=== PATIENT | female | born 1935 | race Caucasian/White ===

== ENCOUNTER 2022-03-05 21:10 | Observation (INO) | payer MEDICARE, OTHER ==
[~2022-03-05] VITALS: Ht 165.1 cm; Wt 65.6 kg
[2022-03-05 22:02] LABS: BASO % 0.4 % (0.0-2.0); EOS % 0.4 % (0.0-4.0); GRAN # 6.6 K/mm3 (1.4-6.5); GRAN % 66.8 % (42.2-75.2); HEMOGLOBIN 11.5 g/dl (12.5-16.0); LYMPH # 2.3 K/mm3 (1.2-3.4); MEAN CELL VOLUME 89 fl (80.0-100.0); MEAN CORPUSCULAR HEMOGLOBIN 29 pg (27-31); MEAN CORPUSCULAR HGB CONC 33 g/dl (33.0-37.0); MEAN PLATELET VOLUME 8.8 fl (7.4-10.4); MONO # 0.8 K/mm3 (0.1-0.6); MONO % 8.5 % (1.7-9.3); PLATELET COUNT 457 K/mm3 (130-400); RED BLOOD COUNT 3.94 M/mm3 (4.10-5.30); REDCELL DISTRIBUTION WIDTH-CV 15.2 % (11.5-14.5)
[2022-03-05 22:04] LABS: HEMATOCRIT 35.2 % (37.0-47.0)
[2022-03-05 22:18] LABS: ALANINE AMINOTRANSFERASE 11 U/L (0-55); ALKALINE PHOSPHATASE 101 U/L (40-150); ANION GAP 13 mmol/L (7-16); AST,SGOT 20 U/L (5-34); BILIRUBIN,TOTAL 0.4 mg/dL (0.2-1.2); BLOOD UREA NITROGEN 28 mg/dL (10-20); C-REACTIVE PROTEIN 0.15 mg/dL (0.00-0.50); CALCIUM 10.5 mg/dL (8.4-10.2); CARBON DIOXIDE 28 mmol/L (23-31); CHLORIDE 100 mmol/L (98-107); CREATININE, serum 2.08 mg/dL (0.57-1.11); GLUCOSE 108 mg/dL (70-99); POTASSIUM 4.5 mmol/L (3.5-4.5); SODIUM 141 mmol/L (136-145); TOTAL PROTEIN 8.1 gm/dL (6.2-8.1)
[2022-03-05 22:25] LABS: TROPONIN-I < 0.010 ng/mL (0.00-0.033)
[2022-03-05] MEDS ORDERED: CORDARONE200 MG/TAB PO (23:03)
[2022-03-05] MEDS ORDERED: LIPITOR 10MG10 MG PO (23:03)
[2022-03-05] MEDS ORDERED: VITAMIN D31000 I1 PO (23:04)
[2022-03-05] MEDS ORDERED: LASIX 20MG TABL20 MG PO (23:05)
[2022-03-05] MEDS ORDERED: TAZTIA120 PO (23:05)
[2022-03-05] MEDS ORDERED: MAG-OX 400400 MG/TAB PO (23:05)
[2022-03-05] MEDS ORDERED: REMERON30 MG PO (23:06)
[2022-03-05] MEDS ORDERED: REGLAN 10MG10 MG/TAB PO (23:06)
[2022-03-05] MEDS ORDERED: SINGULAIR 110 MG/TAB PO (23:07)
[2022-03-05] MEDS ORDERED: PROTONIX 40MG T40 MG PO (23:08)
[2022-03-05] MEDS ORDERED: RT SPIRIVA18 MCG IH (23:09)
[2022-03-05] MEDS ORDERED: CYANOCOBAL1000 MCG/1 (23:09)
[2022-03-05] MEDS ORDERED: ATIVAN 0.50.5 MG/TAB PO (23:09)
[2022-03-05] MEDS ORDERED: XARELTO20 MG PO (23:10)
[2022-03-06] VITALS (7 sets, daily range): BP systolic 101–172; BP diastolic 41–82; PULSE 64–75; TEMP 97.4–97.9
[2022-03-06] MEDS ORDERED: DULCOLAX STOOL100 MG PO (00:29)
[2022-03-06] MEDS ORDERED: PROBIOTIC DIGE1 EACH PO (00:35)
[2022-03-06] MEDS ORDERED: MUCINEX 60600 MG/TA1 PO (00:36)
[2022-03-06] MEDS ORDERED: MACROBID 1100 MG/CAP PO (00:39)
--- NOTE | 2022-03-06 00:44 | NUR ---
Patient arrived to medical unit from ER. Denies having pain and discomfort. Peripheral IV to right forearm. Denies SOB and dyspnea. LS CTA. HRR. Telemetry in place: sinus. Capillary refill less than 3 seconds. Patient is pale and cold. Given warm blanket. BSAx4. Abdomen soft and non-tender. No edema. Patient voices no questions, needs, or concerns at this time. In bed with call light within reach. High fall risk precautions in place. Aware that she needs to get a urine sample. Reminded patient to call when getting up to go to bathroom, and urine collection supplies put in bathroom. Patient voices no questions, needs, or concerns at this time. In bed with call light within reach. Bed alarm on.
[2022-03-06 02:52] LABS: COLLECTION METHOD CLEAN CATCH
[2022-03-06 03:01] LABS: MUCOUS Present (NOT PRESENT); PH 7 (5-8); SQUAMOUS EPITHELIAL 0-2 /hpf (0-10); URINE APPEARANCE Clear (CLEAR/HAZY); URINE BACTERIA Moderate /hpf (NONE SEEN); URINE BILIRUBIN Negative (NEGATIVE); URINE BLOOD Negative (NEGATIVE); URINE COLOR Yellow (YELLOW); URINE GLUCOSE Negative (NEGATIVE); URINE KETONE Negative (NEGATIVE); URINE LEUKOCYTE ESTERASE Negative (NEGATIVE); URINE NITRATE Positive (NEGATIVE); URINE PROTEIN(semi-quant) Negative (NEGATIVE); URINE RBC None Seen /hpf (0-2); URINE UROBILINOGEN Negative (NEGATIVE)
--- NOTE | 2022-03-06 06:14 | NUR ---
Patient has denied pain and discomfort. Only reports feeling weak, denies SOB and dyspnea. High fall risk precautions in place. One assist with going to the bathroom, able to ambulate to bathroom. Continues on IV fluids per orders. Voices no questions, needs, or concerns at this time. In bed with call light within reach. Bed alarm on.
[2022-03-06 06:47] LABS: BASO % 0.2 % (0.0-2.0); EOS # 0.1 K/mm3 (0.0-0.7); EOS % 0.9 % (0.0-4.0); GRAN % 62.2 % (42.2-75.2); LYMPH # 2.1 K/mm3 (1.2-3.4); LYMPH % 26.1 % (20.0-51.0); MEAN CELL VOLUME 91 fl (80.0-100.0); MEAN CORPUSCULAR HGB CONC 32 g/dl (33.0-37.0); MEAN PLATELET VOLUME 9.2 fl (7.4-10.4); MONO # 0.8 K/mm3 (0.1-0.6); MONO % 10.1 % (1.7-9.3); PLATELET COUNT 424 K/mm3 (130-400); RED BLOOD COUNT 3.36 M/mm3 (4.10-5.30); REDCELL DISTRIBUTION WIDTH-CV 15.2 % (11.5-14.5)
[2022-03-06 07:11] LABS: HEMATOCRIT 30.7 % (37.0-47.0); HEMOGLOBIN 9.7 g/dl (12.5-16.0); MEAN CORPUSCULAR HEMOGLOBIN 29 pg (27-31)
[2022-03-06 07:15] LABS: CALCIUM 9.4 mg/dL (8.4-10.2); CREATININE, serum 1.64 mg/dL (0.57-1.11); MAGNESIUM 2.1 mg/dL (1.6-2.6); POTASSIUM 4.1 mmol/L (3.5-4.5)
--- NOTE | 2022-03-06 09:13 | NUR ---
Patient A&Ox4 and a SBA in the room. Patient appears to be doing well and asked if she would be going home today. States she feels better than when she came in. Patient assisted to the bathroom, she did well and has a steady gait. PT currently working with the patient. Call light is w/in reach.
--- NOTE | 2022-03-06 11:45 | NUR ---
Patient covid positive. SW contacted patient via phone to complete intake and discuss discharge plan. Patient reports that she lives at home alone in [place]. Patient reports to being fully independent with her ADL's and utilizes a cane inside her home but when she leaves the house she utilizes a walker. Patient has no home oxygen needs. PCP is Dr. Smith in and she utilizes [facility] for prescription needs. Patient reports that she does not have a DPOA-HC established. She is and has 5 living children who are all grown and lives in different states. Patient's closest child is her daughter Estephanie Oropeza but the patient did not know her phone number by memory. SW discussed that at this time PT is recommending the patient can return home. Patient denies having current home health services and does not wish to establish at this time.Patient is planning on returning home once medically ready. DIscharge plan:Home
--- NOTE | 2022-03-06 17:25 | NUR ---
Patient has done well today and continues to deny any concerns. Remains A&Ox4 and a SBA in the room. Call light w/in reach, very good about calling when any needs arise.
--- NOTE | 2022-03-06 19:46 | NUR ---
Patient assessed at this time. Alert and oriented, and able to make needs known. Denies having pain and discomfort. Peripheral IV to right forearm with IV fluids running per orders. Denies having SOB and dsypena. Does have moist productive cough, but unable to produce sputum. LS CTA in upper lobes, diminished inlower. HRR. Telemetry in place. BSAx4. No edema. Voices no questions, needs, or concerns at this time. In bed with call light within reach.
[2022-03-07 07:07] VITALS: BP 153/86; PULSE 73; TEMP 98
--- NOTE | 2022-03-07 08:00 | NUR ---
PT PLEASANT, AOX4, DENIES PAIN, COUGH PRESENT, ASSESSMENT PERFORMED, PT INDEPENDENT IN ROOM, MEDS GIVEN PER ORDERS, CALL LIGHT WITHIN REACH, IVF INFUSING, NO OTHER NEEDS
[2022-03-07 11:17] VITALS: BP 138/89; PULSE 76; TEMP 97.4
--- NOTE | 2022-03-07 11:29 | NUR ---
RECIEVED CALL FROM PCT THAT PT O2 SATTING 88% ON RA, PT HAD JUST CHANGED FROM LAYING TO SITTING. DR. CHANCE NOTIFIED AND ORDER RECIEVED FOR EXERCISE OXIMETRY BEFORE PT DISCHARGE. ORDER PLACED AND RT NOTIFIED.
[2022-03-07 11:51] LABS: CALCIUM 9.4 mg/dL (8.4-10.2); CREATININE, serum 1.59 mg/dL (0.57-1.11); POTASSIUM 4.2 mmol/L (3.5-4.5)
--- NOTE | 2022-03-07 13:05 | NUR ---
Patient to discharge home today and will not require home oxygen.
--- NOTE | 2022-03-07 15:47 | NUR ---
pt tameka, aox4, educated on discharge paperwork by DAVIS Luciano, pt does not have any questions at this time, IV removed, tele removed, tele notified of discharge. pt called pt daughter for ride. once pt daughter arrived pt escorted down by Ankita CANNON by wheelchair with pt belongings. no other needs
== END 2022-03-07 15:49 | disposition home or self-care (01) ==
LOC: COL.ER 21:10 → MEDICAL 22:44
PROVIDERS: Nurse Practitioner; Student in an Organized Health Care Education/Training Program; ADMIT Internal Medicine
DX: R53.1 Weakness (principal); U07.1 COVID-19; N17.9 Acute kidney failure, unspecified; I48.91 Unspecified atrial fibrillation; I10 Essential (primary) hypertension; E78.5 Hyperlipidemia, unspecified; J44.9 Chronic obstructive pulmonary disease, unspecified; F17.210 Nicotine dependence, cigarettes, uncomplicated; K21.9 Gastro-esophageal reflux disease without esophagitis; N39.0 Urinary tract infection, site not specified; F32.A Depression, unspecified; F41.9 Anxiety disorder, unspecified; Z66 Do not resuscitate
CPT/HCPCS: 99239; G0378; J7030